=== PATIENT | female | born 1980 | race Caucasian/White ===

== ENCOUNTER 2016-07-27 09:52 | Emergency (ER) | payer MEDICAID ==
[~2016-07-27] VITALS: Ht 175.3 cm; Wt 68.0 kg
[~2016-07-27 09:52] MED LIST: GABAPENTIN100 MG PO
[2016-07-27] MEDS ORDERED: BACTRIM DS 8001 TA1 PO (10:45)
[2016-07-27] MEDS ORDERED: MOTRIN 600MG.600 MG PO (10:45)
[2016-07-27] MEDS ORDERED: KEFLEX 500MG.500 MG PO (10:45)
--- NOTE | 2016-07-27 10:46 | Emergency Room Report ---
History of Present Illness Time Seen by [id number] Presenting Problem in Triage 36 years old white female with past medical history . She developed a knot on the suprapubic region starting yesterday. She distended but no discharge. There is no fever or chills no nausea vomiting no diarrhea no dysuria or hematuria. Pt arrived:Walked Presenting Problem:PT STATES HAVING KNOT ABOVE HER PUBIC BONE. PALPABLE BUT NOT VISIBLE. STATES SHE JUST NOTICED AREA YESTERDAY. STATES WHEN SHE PRESSED ON IT, IT SHOT PAIN THROUGH HER UMBILICUS. 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 N Clinical Suspician of Infection? N Mental Status: 1 - Regular (Normal Baseline) Sepsis Risk:Low Sepsis Risk Have you (or family members/close friends) recently traveled outside the [place]? N If Yes, where/when: Have you had exposure to infectious disease within the past month? N TB? Other? Specify: Source patient ALLERGIES Coded Allergies: No Known Allergies (09/17/15) Home Medications Reported Medications Gabapentin (Gabapentin 100MG) 100 MG PO TID #90 CAPSULE History Medical History General CAD? No Angina: No NC: No Hypertension? No Hyperlipidemia? No CHF? No DVT? No PE? No COPD? No Asthma? No Anemia? No GERD? No Gastric ulcers? No GI Bleed? No Hernia? No Thyroid Problems? No Hypothyroidism? No CVA? No Seizures? No Diabetes? No Renal Insuffiency? No End Stage Renal Disease? No UTI? No Stones? No BPH? No GB Disease: No Nephritic Syndrome? No Asplenia? No Hepatitis? No Sickle Cell Disease? No Arthritis? No Migraines? No Cataracts? No Glaucoma? No MRSA? No HIV? No TB? No Anxiety? No Depression? No Cancer? No Immunization Hx DT/Tetanus 5-10 Years Ago Surgical Hx Previous Surgery?Y LEFT ANKLE SX [employer] Hx LMP 1 Month Ago Social History Smoking Hx Smoker: Current Every Day Smoker Tobacco: Yes Type Cigarettes Packs/day 1 1/2 - 2 Packs Alcohol Alcohol: No Review of Systems All Other Systems Reviewed and Negative Constitutional no symptoms reported Eyes no symptoms reported ENT no symptoms reported. Respiratory no symptoms reported Cardiovascular no symptoms reported Gastrointestinal no symptoms reported Genitourinary no symptoms reported. Musculoskeletal no symptoms reported Skin see HPI Psychiatric/Neurological no symptoms reported Physical Exam Vital Signs Vital Signs Date Time Temp Pulse Resp B/P Pulse O2 O2 Flow FiO2 Ox Delivery Rate 07/27 1000 98.0 76 20 144/94 99 - WBC >12,000 or <4,000 or 10% bands? 2 or more SIRS Criteria Met? B/P:144/94 MAP:110 Creatinine >2.0? UA output<0.5ml/kg/hr for 2 hrs? Platelet count >100,000? Lactate >2.0mmol/1? INR >1.2 or PTT > than 60 sec? Evidence of Organ Dysfunction? Provider documented clinical suspician of infection? N Sepsis Criteria Count: 1 Sepsis Risk: Low Sepsis Risk General Appearance normal appearance, WD/WN Eye Exam - bilateral eye normal exam, bilateral eye PERRL, bilateral eye EOMI Ear, Nose, Throat hearing grossly normal, normal ENT inspection Neck normal inspection, non-tender, supple, full range of motion Respiratory Status Yes: trachea midline, chest symmetrical, non tender chest. No: respiratory distress. Lung Sounds bilateral: normal breath sounds, lungs clear. Cardiovascular normal exam, regular rate/rhythm, no peripheral edema, no gallop, no JVD, no murmur, no rub, normal peripheral pulses Gastrointestinal normal bowel sounds, normal exam, non tender, soft, no organomegaly Extremities non-tender, normal range of motion, normal inspection Neurologic alert, infection control specialist II-XII nml as tested, normal exam, oriented x 3 Reflexes Reflexes normal Yes Skin intact, normal color, bimanual examination of the suprapubic region revealed 2 cm nodule subcutaneous above the symphysis pubis not attached to the underlying muscle and fascia. It is no redness skin changes about the nodule. There is no palpable inguinal lymph nodes. femoral Pulse was equal and strong bilaterally. Medical Decision Making LABS/Meds/Orders Pt receiving controlled substance in ED? No Departure Departure Time of Disposition 1042 Disposition DC Home or Self Care(routine) Clinical Impression Primary Impression: Lymphadenitis, acute Condition STABLE Referrals RANDEE ALMENDAREZ MD Additional Instructions I had an extensive discussion with the patient about obtaining labs and CT scan versus using antibiotics and scan if not better. The patient opted for using antibiotics and ibuprofen 600 every 6. She will return if not no improvement. Also discussed with the patient the possibility this can be cancerous and she will need to see a surgeon for dissection this is a case. Discharge Counseling Counseled pt/family regarding diagnosis, test results, medications/RX, home care, follow up needs Prescriptions Current Visit Scripts CEPHALEXIN (Keflex 500MG Capsule) 500 MG PO Q6 #40 CAP SULFAMETHOXAZOLE W/TRIMETHOPRI (Bactrim Ds Tab) 1 TABLET PO BID #20 TAB IBUPROFEN (Motrin 600MG) 600 MG PO Q6HP PRN pain #20 TAB ED Critical Care Critical Care No If Critical Care minutes are documented, the time involved in the performance of seperately reportable procedures was not counted toward critical care time documented. I directly delivered medical care to this critically ill and/or injured patient. Timely evaluation and treatment was necessary to address the significant organ system(s) dysfunction present in this patient. at 1046
[2016-07-27 11:16] VITALS: BP 141/87
== END 2016-07-27 11:16 | disposition home or self-care (01) ==
LOC: ER 09:52
DX: L04.1 Acute lymphadenitis of trunk (principal); Z72.0 Tobacco use